=== PATIENT | female | born 1985 ===

== ENCOUNTER 2021-10-29 10:37 | Outpatient (REF) | payer OTHER, SELFPAY ==
[2021-10-29 15:15] LABS: ALT 62 U/L (14-59); AST 33 U/L (15-37); Albumin 3.5 g/dL (3.4-5.0); Alkaline Phosphatase 76 U/L (46-116); Bilirubin, Total 0.5 mg/dL (0.2-1.0); Calculated LDL 142 mg/dL (<100); Cholesterol 217 mg/dL (<200); HDL Cholesterol 41 mg/dL (40-60); Total Protein 7.5 g/dL (6.4-8.2); Triglyceride 170 mg/dL (<150)
[2021-10-29 15:26] LABS: Bilirubin, Direct 0.1 mg/dL (0.0-0.2)
[2021-10-29 15:28] LABS: Hemoglobin A1C 5.6 % (<5.7)
== END 2021-10-29 10:38 | disposition home or self-care (01) ==
LOC: NCHCN 10:37
PROVIDERS: Visit Provider Nurse Practitioner Family
DX: E66.01 Morbid (severe) obesity due to excess calories (principal); K76.0 Fatty (change of) liver, not elsewhere classified
CPT/HCPCS: 80061; 80076; 83036

== ENCOUNTER 2021-12-16 16:08 | Outpatient (REF) | payer OTHER, SELFPAY ==
[2021-12-16 17:43] LABS: Anion Gap 6.5 mmol/L (3-11); BUN 8 mg/dL (7-18); CO2 27.5 mmol/L (21.0-32.0); CREATININE 0.8 mg/dL (0.55-1.02); Calcium 8.7 mg/dL (8.5-10.1); Chloride 106 mmol/L (98-107); Estimated GFR 97.87 (mL/min/1.73m2); Glucose 94 mg/dL (74-106); Potassium 4.6 mmol/L (3.5-5.1); Sodium 140 mmol/L (136-145)
== END 2021-12-16 16:09 | disposition home or self-care (01) ==
LOC: NCHCN 16:08
PROVIDERS: Visit Provider Internal Medicine
DX: E66.01 Morbid (severe) obesity due to excess calories (principal)
CPT/HCPCS: 80048

== ENCOUNTER 2022-03-06 15:21 | Outpatient (REF) | payer OTHER, SELFPAY ==
[2022-03-06 21:05] LABS: Bacteria Rare HPF (Negative); Crystals Few Calcium Oxalate HPF (Negative); Epithelial Cells Moderate HPF (Negative); WBC Negative HPF (0-5)
[2022-03-06 21:06] LABS: C & S Indicated? No; Casts Negative LPF (Negative); Mucus Negative (Negative)
[2022-03-06 21:08] LABS: Abs Immature Grans 0.02 10^3/uL (0.0-0.06); Absolute Basophil Count 0.03 10^3/uL (0.0-0.2); Absolute Eosinophil Count 0.18 10^3/uL (0.0-0.7); Absolute Lymphocyte Count 1.73 10^3/uL (1.2-3.4); Absolute Monocyte Count 0.37 10^3/uL (0.1-0.8); Basophils % 0.6; Eosinophils % 3.6; HCT 39.5 % (36.0-46.0); HGB 12.8 g/dL (11.2-15.7); Immature Grans % 0.4; Lymphocytes % 34.4; MCH 27.6 pg (27.0-33.0); MCHC 32.4 % (32.0-36.0); MCV 85 fL (80-95); MPV 9.7 fL (8.0-11.0); Monocytes % 7.4; Neutrophils % 53.6; Platelet Count 455 10^3/uL (130-400); RBC 4.63 10^6/uL (3.93-5.22); RDW 13.1 % (11.7-14.6); RDW-SD 40.4 fL; WBC 5.03 10^3/uL (4.4-10.8)
[2022-03-06 21:17] LABS: ALT 858 U/L (14-59); AST 323 U/L (15-37); Albumin 3.7 g/dL (3.4-5.0); Alkaline Phosphatase 166 U/L (46-116); Anion Gap 6.1 mmol/L (3-11); BUN 10 mg/dL (7-18); Bilirubin, Total 1.7 mg/dL (0.2-1.0); CO2 27.9 mmol/L (21.0-32.0); CREATININE 0.8 mg/dL (0.55-1.02); Calcium 9.1 mg/dL (8.5-10.1); Chloride 105 mmol/L (98-107); Estimated GFR 97.87 (mL/min/1.73m2); Glucose 104 mg/dL (74-106); Sodium 139 mmol/L (136-145)
== END 2022-03-06 15:22 | disposition home or self-care (01) ==
LOC: NCHCN 15:21
PROVIDERS: Visit Provider Nurse Practitioner Family
DX: K76.0 Fatty (change of) liver, not elsewhere classified (principal); E66.01 Morbid (severe) obesity due to excess calories; F33.2 Major depressive disorder, recurrent severe without psychotic features
CPT/HCPCS: 80053; 81015; 85025

== ENCOUNTER 2022-03-20 09:02 | Outpatient (REF) | payer OTHER, SELFPAY ==
--- OUTSIDE RECORDS SUMMARY | 2022-03-20 09:07 | XMS_ITS | CCD ---
:1985 Author Care Team Providers Name Role Phone MARGARETTE STEVENSON Attending Physician Unavailable Vital Signs Unknown or Not Available. Allergies Unknown or Not Available. Procedures Unknown or Not Available. History of Immunizations Unknown or Not Available. Problems Unknown or Not Available. Results BILIRUBIN DIRECT* - Collect Date/Time: 0 03/07/2022 15:54 Test Name Code Test Result Test Units Test Ref Range BILIRUBIN DIRECT 1971-1 0.40 mg/dL L=0.00 H=0. 50 COMPREHENSIVE METABOLIC PANEL (CMP) - Co llect Date/Time: 03/07/2022 15:54 Test Name Code Test Result Test Units Test Ref Range GLUCOSE 2345-7 98 mg/dL L=70 H=116 BUN 3094-0 10 mg/dL L=6 H=25 CREATININE 2160-0 0.65 mg/dL L=0.51 H=0.95 SODIUM SERUM 2951-2 135 mmol/L L=136 H=145 POTASSIUM SERUM 2823-3 4.2 mmol/L L=3.4 H=5.2 CHLORIDE SERUM 2075-0 99 mmol/L L=96 H=110 CARBON DIOXIDE (CO2) 2028-9 27 mmol/L L=22 H= 34 ANION GAP 10667-9 9.5 mmol/L CALCIUM SERUM 18930-9 9.4 mg/dL L=8.2 H=10.2 BILIRUBIN TOTAL 1975-2 0.8 mg/dL L=0.0 H=1.3 ALK. PHOS. 6768-6 152 U/L L=46 H=116 SGOT (AST) 1920-8 157 U/L L=15 H=37 SGPT (ALT) 1742-6 672 U/L L=12 H=78 TOTAL PROTEIN 2885-2 8.3 gm/dL L=6.0 H=8.0 ALBUMIN 1751-7 3.6 gm/dL L=3.4 H=5.0 AGE 36 years eGFR (non-Afr.Amer.) 58186-1 103 mL/min eGFR (Afr-[place]) 33335-3 >120 mL/min IRON - Collect Date/Time: 03/07/2022 15: 54 Test Name Code Test Result Test Units Test Ref Range IRON 2498-4 63 ug/dL L=35 H=150 IRON BINDING CAPACITY - Collect Date/Kal e: 03/07/2022 15:54 Test Name Code Test Result Test Units Test Ref Range IBC 2500-7 386 ug/dL L=260 H=445 PT PROTHROMBIN TIME* - Collect Date/Time : 03/07/2022 15:54 Test Name Code Test Result Test Units Test Ref Range PROTIME 5902-2 9.3 seconds L=9.3 H=11.4 INR 36430-1 0.93 L=2.00 H=3.00 ACUTE HEPATITIS PROFILE* - Collect Date/ Time: 03/07/2022 15:54 Test Name Code Test Result Test Units Test Ref Range Hep B Surface Ag Negative N/A Negative Hep C Ab w Rfx PCR Negative N/A Negative Hep A Antibody IgM Negative N/A Negative Hep B Core Antibody Negative N/A Negative Active Medications Unknown or Not Available. Medications Administered During Visit Unknown or Not Available. Encounters Unknown or Not Available. Social History Smoking Status Code Start Date End Date Current every day smoker [id number] Patient Decision Aids Unknown or Not Available. Discharge Instructions You were admitted to [facility] on 03/07/2022 15:44 You had the following tests done: ACUTE HEPATITIS PROFILE* BILIRUBIN DIRECT* COMPREHENSIVE METABOLIC PANEL (CMP) IRON IRON BINDING CAPACITY PT PROTHROMBIN TIME* You were discharged from [facility] on 03/07/2022 15:44 Should you have any questions prior to d ischarge, please contact a member of your healthcare team. If you have left the ho spital and have any questions, please contact your primary care physician. Chief Complaint and Reason For Visit Unknown or Not Available. Function Status Unknown or Not Available. Plan of Care Unknown or Not Available. Referral/Transition of Care Unknown or Not Available.
--- OUTSIDE RECORDS SUMMARY | 2022-03-20 09:07 | XMS_ITS | CCD ---
:1985 Author Care Team Providers Name Role Phone MARGARETTE STEVENSON Attending Physician Unavailable Vital Signs Unknown or Not Available. Allergies Unknown or Not Available. Procedures Unknown or Not Available. History of Immunizations Unknown or Not Available. Problems Unknown or Not Available. Results Unknown or Not Available. Active Medications Unknown or Not Available. Medications Administered During Visit Unknown or Not Available. Encounters Encounter Diagnosis Diagnosis Code Start Date Calculus of gallbladder without cholecystitis without [id number] 03/13/2022 obstruction Social History Smoking Status Code Start Date End Date Current every day smoker [id number] Patient Decision Aids Unknown or Not Available. Discharge Instructions You were admitted to [facility] on 03/13/2022 10:46 with a principal diagnosis of Calculus of gallbladder without brianna cystitis without obstruction You were discharged from [facility] on 03/13/2022 10:46 Should you have any questions prior to d ischarge, please contact a member of your healthcare team. If you have left the ho spital and have any questions, please contact your primary care physician. Chief Complaint and Reason For Visit Chief Complaint Date of Onset ELEVATED LFT Function Status Unknown or Not Available. Plan of Care Unknown or Not Available. Referral/Transition of Care Unknown or Not Available.
[2022-03-20 15:20] LABS: ALT 80 U/L (14-59); AST 35 U/L (15-37); Albumin 3.5 g/dL (3.4-5.0); Alkaline Phosphatase 92 U/L (46-116); Anion Gap 8.4 mmol/L (3-11); BUN 11 mg/dL (7-18); Bilirubin, Total 0.5 mg/dL (0.2-1.0); CO2 24.6 mmol/L (21.0-32.0); CREATININE 0.7 mg/dL (0.55-1.02); Calcium 8.9 mg/dL (8.5-10.1); Chloride 106 mmol/L (98-107); Estimated GFR 114.88 (mL/min/1.73m2); Glucose 105 mg/dL (74-106); Potassium 4.4 mmol/L (3.5-5.1); Sodium 139 mmol/L (136-145); Total Protein 7.6 g/dL (6.4-8.2)
== END 2022-03-20 09:03 | disposition home or self-care (01) ==
LOC: NCHCN 09:02
PROVIDERS: Visit Provider Nurse Practitioner Family
DX: K80.20 Calculus of gallbladder without cholecystitis without obstruction (principal); R79.89 Other specified abnormal findings of blood chemistry
CPT/HCPCS: 80053

== ENCOUNTER 2022-04-24 18:15 | Outpatient (REF) | payer OTHER, SELFPAY ==
[2022-04-24 21:27] LABS: ALT 65 U/L (14-59); AST 25 U/L (15-37); Albumin 3.7 g/dL (3.4-5.0); Alkaline Phosphatase 88 U/L (46-116); Anion Gap 8.6 mmol/L (3-11); BUN 12 mg/dL (7-18); Bilirubin, Total 0.5 mg/dL (0.2-1.0); CO2 25.4 mmol/L (21.0-32.0); CREATININE 0.9 mg/dL (0.55-1.02); Chloride 105 mmol/L (98-107); Estimated GFR 84.97 (mL/min/1.73m2); Glucose 105 mg/dL (74-106); Potassium 4.3 mmol/L (3.5-5.1); Sodium 139 mmol/L (136-145); Total Protein 7.5 g/dL (6.4-8.2)
== END 2022-04-24 18:16 | disposition home or self-care (01) ==
LOC: NCHCN 18:15
PROVIDERS: Visit Provider Nurse Practitioner Family
DX: R79.89 Other specified abnormal findings of blood chemistry (principal)
CPT/HCPCS: 80053